=== PATIENT | female | born 1965 | race Hispanic/Latino ===

== ENCOUNTER 2021-08-08 12:39 | Emergency (ER) | payer SELFPAY ==
[2021-08-08] MEDS ORDERED: methylPREDNISolone Sod Succ/PF 125 MG/2 ML VIAL ONE (13:32)
== END 2021-08-08 14:14 | disposition home or self-care (01) ==
LOC: NAV ERS 12:39
DX: L25.9 Unspecified contact dermatitis, unspecified cause (principal); L50.9 Urticaria, unspecified
CPT/HCPCS: 96372; 99282; J2930